=== PATIENT | female | born 1980 | race Caucasian/White ===

== ENCOUNTER → 2017-02-26 | Outpatient (CLI) | payer OTHER ==
[~2017-02-26] MED LIST: GADAVIST IV PRN; HYDR-4079 PO; LEVO25TA PO; NATA1INJ IV; VITA1CRE PO; vitamin b12 IM
--- NOTE | 2017-02-26 10:00 | DIAGNOSTIC IMAGING REPORT ---
Brain MRI WITH AND WITHOUT CONTRAST HISTORY: Multiple sclerosis. TECHNIQUE: Multiplanar multisequence MRI of the brain was performed both before and after the intravenous administration of contrast. COMPARISON STUDY: Brain MRI 02/08/2015. FINDINGS: There is no mass, hematoma, midline shift, acute infarct. The paranasal sinuses and mastoid air cells are clear. The major vascular flow-voids at the skull base are well-maintained. The ventricles are normal in size. Multiple scattered white matter plaques are not significantly changed in size, number, or distribution compared to the prior study. No abnormal enhancement. IMPRESSION: No significant change in the scattered white matter plaques consistent with the patient's history of multiple sclerosis. No abnormal enhancement to suggest active demyelination. Electronically signed by: Brian Morrison M.D. 02/26/2017 9:59 AM Dictated Date/Time: 02/26/2017 9:53 AM
== END | disposition home or self-care (01) ==
LOC: C.MRI 08:36
PROVIDERS: ATTEND Physician Assistant
DX: G35 Multiple sclerosis (principal)

== ENCOUNTER → 2017-06-13 | Outpatient (CLI) | payer OTHER ==
[~2017-06-13] MED LIST changes: -GADAVIST IV PRN
[2017-06-13 13:10] LABS: BASO % 0.6 %; BASO ABS # 0.04 K/uL (0-0.2); COMPLETE YES; HEMATOCRIT 34.7 % (37-47); IG% 0.3 %; LYMPH ABS # 2.66 K/uL (1.2-3.4); MEAN CELL VOLUME 89.2 fL (80-100); MEAN CORPUSCULAR HEMOGLOBIN 31.1 pg (25-34); MEAN CORPUSCULAR HGB CONC 34.9 g/dl (32-36); MEAN PLATELET VOLUME 9.4 fL (7.4-10.4); MONO % 7.9 %; NEUT % 39.2 %; PLATELET COUNT 276 K/uL (130-400); RED BLOOD COUNT 3.89 M/uL (4.2-5.4); WHITE BLOOD COUNT 6.82 K/uL (4.8-10.8)
[2017-06-13 13:12] LABS: ALT/SGPT 21 U/L (12-78); BLOOD UREA NITROGEN 14 mg/dl (7-18); BUN/CREATININE RATIO 24.5 (10-20); CARBON DIOXIDE 23 mmol/L (21-32); CHLORIDE 106 mmol/L (98-107); CREATININE 0.56 mg/dl (0.60-1.20); GLUCOSE 86 mg/dl (70-99); POTASSIUM 3.9 mmol/L (3.5-5.1); SODIUM 138 mmol/L (136-145)
[2017-06-13 13:15] LABS: ALB/GLOB RATIO 1.1 (0.9-2); ALKALINE PHOSPHATASE 60 U/L (45-117); AST/SGOT 16 U/L (15-37)
== END ==
LOC: C.LABSPEC 09:58
PROVIDERS: ATTEND Psychiatry & Neurology Neurology
DX: G35 Multiple sclerosis (principal); E55.9 Vitamin D deficiency, unspecified

== ENCOUNTER → 2017-08-20 | Outpatient (CLI) | payer OTHER ==
[~2017-08-20] MED LIST changes: +GADAVIST IV PRN
--- NOTE | 2017-08-20 13:11 | DIAGNOSTIC IMAGING REPORT ---
BRAIN COMBO FOR MS CLINICAL HISTORY: 36 years-old Female presenting with MS. TECHNIQUE: Multisequence, multiplanar MR imaging of the brain was performed before and after the administration of intravenous contrast. IV contrast: 5 mL of Gadavist. COMPARISON: None. FINDINGS: Ventricles and sulci normal in size. Numerous subcortical and periventricular white matter T2/FLAIR hyperintense lesions prominently involving the corpus callosum and temporal horns of the lateral ventricles consistent with known demyelinating disease. These are unchanged in size, number, and distribution. Also notable is atrophy of the posterior body of the corpus callosum, unchanged. Subtle lesion in the left brachium pontis unchanged. No of these lesions demonstrate restricted diffusion or enhancement to suggest active disease. No mass effect or midline shift. No hemorrhage No extra-axial fluid collection. T2 skull base flow voids preserved. No abnormal parenchymal enhancement. Bone marrow signal intensity within the calvarium within normal limits. IMPRESSION: 1. Multifocal white matter disease consistent with known multiple sclerosis. The lesions are unchanged in size, number, and distribution. No evidence of restricted diffusion or enhancement to suggest active disease. 2. No acute intracranial pathology. Electronically signed by: Clark Reed M.D. 08/20/2017 1:10 PM Dictated Date/Time: 08/20/2017 12:58 PM
[2017-08-21 13:32] LABS: VARICELLA ZOS VIR IGG VALUE 729.5 INDEX
== END | disposition home or self-care (01) ==
LOC: C.MRIBC 11:13
PROVIDERS: ATTEND Physician Assistant
DX: G35 Multiple sclerosis (principal)

== ENCOUNTER → 2017-08-21 | Outpatient (CLI) | payer OTHER ==
[~2017-08-21] MED LIST changes: -GADAVIST IV PRN
== END | disposition home or self-care (01) ==
LOC: C.CPL 11:29
PROVIDERS: ATTEND Physician Assistant
DX: G35 Multiple sclerosis (principal)

== ENCOUNTER → 2017-11-20 | Outpatient (CLI) | payer OTHER | END | disposition home or self-care (01) | LOC: C.CPL 16:18 | PROVIDERS: ATTEND Psychiatry & Neurology Neurology | DX: G35 Multiple sclerosis (principal) ==